=== PATIENT | female | born 1990 | race Caucasian/White ===

== ENCOUNTER 2017-09-01 05:25 | Emergency (ER) | payer MEDICAID ==
[~2017-09-01] VITALS: Ht 162.6 cm; Wt 81.8 kg
[2017-09-01] MEDS ORDERED: LAMO100 PO (05:40)
[2017-09-01] MEDS ORDERED: ALPR1TAB7 PO (05:40)
[2017-09-01] MEDS ORDERED: DOXE10 PO (05:40)
[2017-09-01] MEDS ORDERED: ALPR1TAB PO (05:40)
[2017-09-01] MEDS ORDERED: QUET200T PO (05:40)
[2017-09-01] MEDS ORDERED: IBUPROFEN 800 MG TABLET PO ONE (09:30)
[2017-09-01 10:32] VITALS: BP 123/82
== END 2017-09-01 10:54 | disposition home or self-care (01) ==
LOC: EMS 05:26
DX: S82.832D Other fracture of upper and lower end of left fibula, subsequent encounter for closed fracture with routine healing (principal); M79.672 Pain in left foot; F31.9 Bipolar disorder, unspecified; F17.210 Nicotine dependence, cigarettes, uncomplicated; X58.XXXD Exposure to other specified factors, subsequent encounter
CPT/HCPCS: 99283